=== PATIENT | female | born 1980 | race Caucasian/White ===

== ENCOUNTER → 2017-07-15 | Outpatient (CLI) | payer OTHER ==
[~2017-07-15] MED LIST: ALBU90OI6 INH; ALBU90OI61; Bentyl10 MG PO; CEPH250A PO; DOCU100 PO; DULO30 PO; FLONASE ALLERG9.9 ML; GABA300 PO; HYDR1TAB94 PO; IBUP800 PO; Inderal40 MG; METF500 PO; METPRE4DP PO; Norco 5-325 Ta1 EACH PO; ORACON PO; Omeprazole20 M1 PO; PROM25 PO; Percocet 5-3251 EACH PO; Phenergan25 M1 PO; SPIR25 PO; SUMA25 PO; Zofran Odt4 MG SL
[2017-07-17 12:41] LABS: HPV Genotype 16 Not Detected (NOTDET); HPV Genotype 18 Not Detected (NOTDET)
[2017-07-22 08:21] LABS: HPV High Risk Other Not Detected (NOTDET)
== END | disposition home or self-care (01) ==
LOC: LAB 18:13
PROVIDERS: Obstetrics & Gynecology
DX: Z01.419 Encounter for gynecological examination (general) (routine) without abnormal findings (principal)
CPT/HCPCS: 87624; G0123

== ENCOUNTER 2017-08-17 08:26 | Day surgery (SDC) | payer OTHER ==
[~2017-08-17] VITALS: Ht 160 cm; Wt 131.5 kg
[~2017-08-17 08:26] MED LIST changes: -Bentyl10 MG PO; -DOCU100 PO; -HYDR1TAB94 PO; -IBUP800 PO; -Omeprazole20 M1 PO; -Phenergan25 M1 PO
[2017-08-18 06:00] LABS: BASOPHILS ABSOLUTE AUTO 0.01 K/mm3 (0.00-0.23); BASOPHILS PERCENT AUTO 0 % (0-2); EOSINOPHILS PERCENT AUTO 0 % (0-6); Hematocrit 32.7 % (33.0-51.0); Hemoglobin 10.7 g/dL (11.5-16.0); IMMATURE GRAN ABSOLUTE AUTO 0.06 K/mm3 (0.00-0.10); IMMATURE GRAN PERCENT AUTO 0 % (0-1); LYMPHOCYTES ABSOLUTE AUTO 1.31 K/mm3 (0.84-5.20); LYMPHOCYTES PERCENT AUTO 8 % (21-46); MONOCYTES PERCENT AUTO 7 % (4-13); Mean Corpuscular HGB 28.6 pg (26.0-34.0); Mean Corpuscular HGB Conc 32.7 g/dL (31.5-36.5); Mean Corpuscular Volume 87 fL (80-100); Mean Platelet Volume 9.3 fL (9.1-12.4); NEUTROPHILS ABSOLUTE AUTO 13.16 K/mm3 (1.96-9.15); NEUTROPHILS PERCENT AUTO 84 % (41-73); Platelet Count 418 K/mm3 (150-400); RDW Coefficient Variation 13.2 % (11.7-14.2); RDW Standard Deviation 42.5 fL (35.1-46.3); Red Blood Cell Count 3.74 M/mm3 (3.80-5.20); White Blood Cell Count 15.64 K/mm3 (4.00-11.30)
[2017-08-18] MEDS ORDERED: HYDR1TAB94 PO (07:56)
[2017-08-18] MEDS ORDERED: DOCU100 PO (07:56)
[2017-08-18] MEDS ORDERED: IBUP800 PO (07:57)
[2018-03-16] MEDS ORDERED: Omeprazole20 M1 PO (10:37)
[2018-03-16] MEDS ORDERED: Phenergan25 M1 PO (10:37)
[2018-03-16] MEDS ORDERED: Bentyl10 MG PO (10:38)
== END 2017-08-18 09:34 | disposition home or self-care (01) ==
LOC: SURS 08:26
PROVIDERS: Obstetrics & Gynecology
PROC: 0UT9FZZ Resection of Uterus, Via Natural or Artificial Opening With Percutaneous Endoscopic Assistance (ICD-10-PCS; principal; 2017-08-17 10:00)
PROC: 0UT7FZZ Resection of Bilateral Fallopian Tubes, Via Natural or Artificial Opening With Percutaneous Endoscopic Assistance (ICD-10-PCS; principal; 2017-08-17 10:00)
DX: N80.0 Endometriosis of uterus (principal); N99.4 Postprocedural pelvic peritoneal adhesions; N92.1 Excessive and frequent menstruation with irregular cycle; R10.2 Pelvic and perineal pain; E28.2 Polycystic ovarian syndrome; E66.01 Morbid (severe) obesity due to excess calories; Z68.43 Body mass index [BMI] 50.0-59.9, adult; F17.210 Nicotine dependence, cigarettes, uncomplicated; J45.909 Unspecified asthma, uncomplicated; E16.2 Hypoglycemia, unspecified; Z79.899 Other long term (current) drug therapy
CPT/HCPCS: 36415; 82947; 85025; 88307; C1729; J0171; J0690; J1100; J1170; J1885; J2250; J2405; J2710; J3010; J7030; J7120

== ENCOUNTER 2019-02-06 22:00 | Emergency (ER) | payer OTHER ==
[~2019-02-06] VITALS: Ht 165.1 cm; Wt 122.4 kg
[~2019-02-06 22:00] MED LIST changes: +Bentyl10 MG PO; +DOCU100 PO; +HYDR1TAB94 PO; +IBUP800 PO; +Omeprazole20 M1 PO; +Phenergan25 M1 PO
[2019-02-06] MEDS ORDERED: Zanaflex2 M1 PO (23:09)
[2019-02-07] MEDS ORDERED: CYCL10 PO (00:05)
[2019-02-07] MEDS ORDERED: LIDO700A20 TOP (00:05)
== END 2019-02-07 00:35 | disposition home or self-care (01) ==
LOC: ER 22:00
DX: S39.012A Strain of muscle, fascia and tendon of lower back, initial encounter (principal); X58.XXXA Exposure to other specified factors, initial encounter; Z91.018 Allergy to other foods; Z88.6 Allergy status to analgesic agent; Z88.8 Allergy status to other drugs, medicaments and biological substances; Z88.5 Allergy status to narcotic agent; Z79.899 Other long term (current) drug therapy; Z79.84 Long term (current) use of oral hypoglycemic drugs; G43.909 Migraine, unspecified, not intractable, without status migrainosus; K21.9 Gastro-esophageal reflux disease without esophagitis; J45.909 Unspecified asthma, uncomplicated
CPT/HCPCS: 96372; 99283-25; J1885

== ENCOUNTER → 2019-08-25 | Outpatient (CLI) | payer OTHER ==
[~2019-08-25] MED LIST changes: +CYCL10 PO; +LIDO700A20 TOP; +Zanaflex2 M1 PO
[2019-08-26 14:39] LABS: G. vaginalis (DNA Probe) Negative (NEGATIVE); T. vaginalis (DNA Probe) Negative (NEGATIVE)
[2019-08-26 14:40] LABS: Candida species (DNA Probe) Positive (NEGATIVE)
[2019-08-27 02:10] LABS: CHLAMYDIA TRACHOMATIS, NAA Negative (Negative); NEISSERIA GONORRHOEAE, NAA Negative (Negative)
== END ==
LOC: LAB SHORT 11:00 → LAB 11:00
PROVIDERS: Nurse Practitioner
DX: Z20.2 Contact with and (suspected) exposure to infections with a predominantly sexual mode of transmission (principal)
CPT/HCPCS: 87070; 87205; 87480; 87491; 87510; 87591; 87660

== ENCOUNTER 2022-04-11 15:24 | Emergency (ER) | payer OTHER ==
[~2022-04-11] VITALS: Ht 160 cm; Wt 122.5 kg
[~2022-04-11 15:24] MED LIST changes: +BACTRIM DS TAB1 EAC1 PO; +CEPH500 PO; +CYMBALTA30 M2 PO; +Inderal40 MG PO; +METFORMIN HCL500 M2 PO; +NEURONTIN300 MG PO; +OMEP20ER PO; +SPIRONOLACTONE25 MG PO; +Ventolin/Prove6.7 GM INH
[2022-04-11 18:42] LABS: Influenza A, PCR NEGATIVE (NEGATIVE); Influenza B, PCR NEGATIVE (NEGATIVE); Resp Syncytial Virus, PCR NEGATIVE (NEGATIVE); SARS-Cov-2 (COVID-19) PCR, MMC NEGATIVE (NEGATIVE)
[2022-04-12] MEDS ORDERED: GABA300 PO (23:33)
[2022-04-12] MEDS ORDERED: KETO10 PO (23:33)
[2022-04-13] MEDS ORDERED: CEPH500 PO (21:34)
[2022-04-13] MEDS ORDERED: ONDA4 PO (21:34)
== END 2022-04-12 00:48 | disposition home or self-care (01) ==
LOC: ER 15:24
PROVIDERS: Physician Assistant
DX: J06.9 Acute upper respiratory infection, unspecified (principal); K21.9 Gastro-esophageal reflux disease without esophagitis; Z79.84 Long term (current) use of oral hypoglycemic drugs; Z79.899 Other long term (current) drug therapy; Z88.5 Allergy status to narcotic agent; Z88.8 Allergy status to other drugs, medicaments and biological substances; Z91.018 Allergy to other foods; Z91.09 Other allergy status, other than to drugs and biological substances; Z20.822 Contact with and (suspected) exposure to COVID-19
CPT/HCPCS: 0241U; 36415; 71046; A9270; J1885; J2405

== ENCOUNTER 2022-04-12 20:48 | Emergency (ER) | payer OTHER ==
[~2022-04-12] VITALS: Ht 160 cm; Wt 127.0 kg
[2022-04-12] MEDS ORDERED: GABA300 PO (23:33)
[2022-04-12] MEDS ORDERED: KETO10 PO (23:33)
[2022-04-13] MEDS ORDERED: ONDA4 PO (21:34)
[2022-04-13] MEDS ORDERED: CEPH500 PO (21:34)
== END 2022-04-12 23:46 | disposition home or self-care (01) ==
LOC: ER 20:48
DX: M79.2 Neuralgia and neuritis, unspecified (principal); Z88.8 Allergy status to other drugs, medicaments and biological substances; Z88.6 Allergy status to analgesic agent; Z88.5 Allergy status to narcotic agent; Z91.018 Allergy to other foods; Z79.899 Other long term (current) drug therapy; Z79.84 Long term (current) use of oral hypoglycemic drugs; G43.909 Migraine, unspecified, not intractable, without status migrainosus; J45.909 Unspecified asthma, uncomplicated; K21.9 Gastro-esophageal reflux disease without esophagitis
CPT/HCPCS: 99283

== ENCOUNTER 2022-04-13 19:50 | Emergency (ER) | payer OTHER ==
[~2022-04-13] VITALS: Ht 160 cm; Wt 127.0 kg
[~2022-04-13 19:50] MED LIST changes: +KETO10 PO
[2022-04-13] MEDS ORDERED: ONDA4 PO (21:34)
[2022-04-13] MEDS ORDERED: CEPH500 PO (21:34)
== END 2022-04-13 21:55 | disposition home or self-care (01) ==
LOC: ER 19:50
DX: L03.116 Cellulitis of left lower limb (principal); Z88.8 Allergy status to other drugs, medicaments and biological substances; Z88.5 Allergy status to narcotic agent; Z91.018 Allergy to other foods; Z91.09 Other allergy status, other than to drugs and biological substances; Z79.899 Other long term (current) drug therapy; Z79.84 Long term (current) use of oral hypoglycemic drugs
CPT/HCPCS: 99283; A9270

== ENCOUNTER 2022-04-16 12:59 | Inpatient (IN) | payer OTHER ==
[~2022-04-16] VITALS: Ht 160 cm; Wt 111.4 kg
[~2022-04-16 12:59] MED LIST changes: +ONDA4 PO
[2022-04-16 15:55] LABS: BASOPHILS ABSOLUTE AUTO 0.09 K/mm3 (0.00-0.23); BASOPHILS PERCENT AUTO 0 % (0-2); EOSINOPHILS ABSOLUTE AUTO 0.14 K/mm3 (0.00-0.68); EOSINOPHILS PERCENT AUTO 1 % (0-6); Hematocrit 43.9 % (33.0-51.0); Hemoglobin 15.1 g/dL (11.5-16.0); IMMATURE GRAN ABSOLUTE AUTO 0.37 K/mm3 (0.00-0.10); IMMATURE GRAN PERCENT AUTO 1 % (0-1); LYMPHOCYTES ABSOLUTE AUTO 1.69 K/mm3 (0.84-5.20); LYMPHOCYTES PERCENT AUTO 7 % (21-46); MONOCYTES ABSOLUTE AUTO 1.54 K/mm3 (0.16-1.47); MONOCYTES PERCENT AUTO 6 % (4-13); Mean Corpuscular HGB 29.4 pg (26.0-34.0); Mean Corpuscular HGB Conc 34.4 g/dL (31.5-36.5); Mean Corpuscular Volume 85 fL (80-100); Mean Platelet Volume 8.8 fL (9.1-12.4); NEUTROPHILS ABSOLUTE AUTO 21.82 K/mm3 (1.96-9.15); NEUTROPHILS PERCENT AUTO 85 % (41-73); Platelet Count 520 K/mm3 (150-400); RDW Coefficient Variation 13.2 % (11.7-14.2); RDW Standard Deviation 41.9 fL (35.1-46.3); Red Blood Cell Count 5.14 M/mm3 (3.80-5.20); White Blood Cell Count 25.65 K/mm3 (4.00-11.30)
[2022-04-16 16:05] LABS: Source, Urine Clean Catch
[2022-04-16 16:08] LABS: Appearance, Urine Cloudy (Clear); Bilirubin, Urine Neg (Neg); Blood, Urine 3+ (Neg); Color, Urine Yellow (P-Yellow); Glucose Qualitative, Urine 1+ (Neg); Ketones, Urine 1+ (Neg); Leukocyte Esterase, Urine 3+ (Neg); Nitrite, Urine Neg (Neg); Protein, Urine 2+ (Neg); Urobilinogen, Urine NORM (Normal)
[2022-04-16 16:21] LABS: C-REACTIVE PROTEIN, EXT RANGE 14.3 mg/dL (0.000-0.300)
[2022-04-16 16:32] LABS: Albumin, Blood 3.3 g/dL (3.4-5.0); Albumin/Globulin Ratio 0.7 (0.8-1.8); Bilirubin, Total 0.3 mg/dL (0.1-1.0); Bun/Creatinine Ratio 11.2 (12.0-20.0); Calcium, Blood 9.7 mg/dL (8.5-10.1); Creatinine, Blood 1.43 mg/dL (0.40-1.00); Globulin, Blood 4.5 g/dL (2.2-4.0); Thyroid Stimulating Hormone 0.562 uIU/mL (0.360-4.800); Total Protein, Blood 7.8 g/dL (6.4-8.2)
[2022-04-16 16:32] LABS: Bacteria Many /hpf; Squamous Epithelial Cells Mod /hpf (Few); White Blood Cells, Urine TNTC /hpf (0-5)
[2022-04-16 16:45] LABS: Influenza A, PCR NEGATIVE (NEGATIVE); Influenza B, PCR NEGATIVE (NEGATIVE); Resp Syncytial Virus, PCR NEGATIVE (NEGATIVE); SARS-Cov-2 (COVID-19) PCR, MMC NEGATIVE (NEGATIVE)
[2022-04-16 19:56] LABS: CPK Creatine Kinase 80 U/L (26-193)
--- NOTE | 2022-04-16 21:55 | NUR ---
ASSUMED CARE OF PATIENT AT 2024. PT ARRIVED TO ROOM 333 VIA GURNEY. PT UNABLE TO PIVOT TX DUE TO PAIN IN R KNEE. PT TX VIA SLIDE SHEET TO BED. PT REPORTING FENTANYL GIVEN IN ER WAS WEARING OFF AND PAIN WAS INCREASING. PT STARTED ON 2ND BAG OF IV POTASSIUM BUT PT REPORTED 10/10 PAIN FROM IV SITE ONCE INFUSION STARTED. SLOWED RATE DOWN BUT PT CONTINUED TO COMPLAIN OF PAIN. PT CRYING FROM THE PAIN SO INFUSION WAS STOPPED. IV IS NOT INFILTRATED. TELE BOX PLACED AND PT REPORTED TO BE NSR AT 73. PT ORIENTED TO ROOM, CALL LIGHT, FALL PRECAUTIONS. TC PLACED TO DR. MCKENZIE REGARDING INCREASED PAIN AND INABILITY TO TOLERATE IV POTASSIUM. ORDER RECEIVED FOR ONE TIME DOSE OF DILAUDID 1 MG IV NOW, POTASSIUM 20 MEQ PO NOW ONE TIME DOSE. PT REPORTED SHE HAS HAD DILAUDID IN THE PAST AND CAN TOLERATE DILAUDID. PT WAS GIVEN DILAUDID VIA IV WITH NO REPORTS OF ADVERSE REACTION. PT REPORTED PAIN LEVEL TOLERABLE POST ADMINISTRATION 2/10. PT GIVEN CHICKEN NOODLE SOUP AND CRACKERS SHE REPORTED SHE WAS HUNGRY AND HAS NOT EATEN A MEAL IN A WEEK DUE TO INABILITY TO COOK FOR SELF DUE TO PAIN. TOLERATING PO INTAKE AT THIS TIME.
[2022-04-17 03:05] LABS: U Amphetamine Screen Not Detected; U Barbituate Screen Not Detected; U Benzodiazapine Screen Not Detected; U Buprenorphine Screen Not Detected; U Cannabinoids Screen Not Detected; U Cocaine Screen Not Detected; U Methadone Screen Not Detected; U Methamphetamine Screen Not Detected; U Opiates Screen DETECTED; U Oxycodone Screen Not Detected; U Phencyclidine Screen Not Detected; U Propoxyphene Screen Not Detected
--- NOTE | 2022-04-17 05:09 | NUR ---
PT TRANSFERRED FROM ED AFTER SHIFT CHANGE WITH CARY. PT IS A/OX4. VS STABLE. PT IS ON TELE WITH SR AT 86. PT IS 2PA. PT USES BEDPAN FOR ELIMINATION. PT HAD C/O OF PAIN 10/10 IN R KNEE, LEFT HAND, LEFT ANKLE. 1MG STAT DILAUDED GIVEN AND REDUCED PAIN TO 5/10. PT HAS FENTANYL IV 25-50mcg Q2H PRN FOR PAIN. PT HAS BEEN REQUESING MEDICATION Q2H FOR PAIN. PT IS CURRENTLY AWAKE WITH BED IN LOWEST POSITION AND CALL LIGHT WITHIN REACH.
[2022-04-17 05:30] LABS: BASOPHILS ABSOLUTE AUTO 0.11 K/mm3 (0.00-0.23); BASOPHILS PERCENT AUTO 1 % (0-2); EOSINOPHILS ABSOLUTE AUTO 0.23 K/mm3 (0.00-0.68); EOSINOPHILS PERCENT AUTO 1 % (0-6); Hematocrit 39.4 % (33.0-51.0); Hemoglobin 13.6 g/dL (11.5-16.0); IMMATURE GRAN ABSOLUTE AUTO 0.34 K/mm3 (0.00-0.10); IMMATURE GRAN PERCENT AUTO 1 % (0-1); LYMPHOCYTES ABSOLUTE AUTO 2.06 K/mm3 (0.84-5.20); LYMPHOCYTES PERCENT AUTO 9 % (21-46); MONOCYTES ABSOLUTE AUTO 2.18 K/mm3 (0.16-1.47); MONOCYTES PERCENT AUTO 9 % (4-13); Mean Corpuscular HGB 29.6 pg (26.0-34.0); Mean Corpuscular HGB Conc 34.5 g/dL (31.5-36.5); Mean Corpuscular Volume 86 fL (80-100); Mean Platelet Volume 8.8 fL (9.1-12.4); NEUTROPHILS ABSOLUTE AUTO 18.71 K/mm3 (1.96-9.15); NEUTROPHILS PERCENT AUTO 79 % (41-73); Platelet Count 517 K/mm3 (150-400); RDW Coefficient Variation 13.5 % (11.7-14.2); RDW Standard Deviation 42.3 fL (35.1-46.3); Red Blood Cell Count 4.59 M/mm3 (3.80-5.20); White Blood Cell Count 23.63 K/mm3 (4.00-11.30)
[2022-04-17 06:00] LABS: Albumin, Blood 2.7 g/dL (3.4-5.0); Albumin/Globulin Ratio 0.6 (0.8-1.8); Bilirubin, Total 0.3 mg/dL (0.1-1.0); Bun/Creatinine Ratio 14.9 (12.0-20.0); Calcium, Blood 8.7 mg/dL (8.5-10.1); Creatinine, Blood 0.94 mg/dL (0.40-1.00); Globulin, Blood 4.2 g/dL (2.2-4.0); Potassium, Blood 3.4 mmol/L (3.5-5.5); Total Protein, Blood 6.9 g/dL (6.4-8.2)
--- NOTE | 2022-04-17 18:30 | NUR ---
SHIFT SUMMARY PTN HERE FOR CARY AND UTI, BUT ALSO NOTED TO HAVE PAINFUL SWOLLEN R KNEE, L HAND, AND L FOOT. AREAS ARE PUFFY WITH REDNESS AND WARMTH. PAIN HIGH 9-10/10, WITH FENTYNL REDUCING PAIN TO ABOUT A 5, AND PERCOCET REDUCING PAIN DOWN TO 2-3/10. PTN STARTED ON STEROID. ANTIBIOTIC ROCEPHIN ALSO BEING GIVEN IV. PTN HAS RESPONDED WELL TO THERAPY THROUGHOUT SHIFT. CONTINUE TO MONITOR.
--- NOTE | 2022-04-18 04:41 | NUR ---
DISABILITY RATER SUMMARY: A&Ox4. PLEASANT AND COOPERATIVE WITH CARE. VSS; BP ELEVATION THIS AM DURING TIME OF INCREASED PAIN. C/O HEARTBURN AND ADMINISTERED MAALOX PER DR MALONE. PRN OXY x2 AND PRN FENTANYL x1. REPORTS PAIN IS MUCH BETTER CONTROLLED WITH THIS NEW REGIMEN. TELE NORMAL SINUS @ 62. NO OTHER ACUTE EVENTS T/O THE NIGHT. WILL REPORT TO ONCOMING RN.
[2022-04-18 05:02] LABS: BASOPHILS ABSOLUTE AUTO 0.07 K/mm3 (0.00-0.23); BASOPHILS PERCENT AUTO 0 % (0-2); EOSINOPHILS ABSOLUTE AUTO 0.03 K/mm3 (0.00-0.68); EOSINOPHILS PERCENT AUTO 0 % (0-6); Hematocrit 38.5 % (33.0-51.0); Hemoglobin 13.3 g/dL (11.5-16.0); IMMATURE GRAN ABSOLUTE AUTO 0.25 K/mm3 (0.00-0.10); IMMATURE GRAN PERCENT AUTO 1 % (0-1); LYMPHOCYTES PERCENT AUTO 8 % (21-46); MONOCYTES ABSOLUTE AUTO 1.75 K/mm3 (0.16-1.47); MONOCYTES PERCENT AUTO 8 % (4-13); Mean Corpuscular HGB 29.6 pg (26.0-34.0); Mean Corpuscular HGB Conc 34.5 g/dL (31.5-36.5); Mean Corpuscular Volume 86 fL (80-100); Mean Platelet Volume 8.9 fL (9.1-12.4); NEUTROPHILS ABSOLUTE AUTO 19.07 K/mm3 (1.96-9.15); NEUTROPHILS PERCENT AUTO 83 % (41-73); Platelet Count 596 K/mm3 (150-400); RDW Coefficient Variation 13.3 % (11.7-14.2); RDW Standard Deviation 41.7 fL (35.1-46.3); White Blood Cell Count 22.97 K/mm3 (4.00-11.30)
[2022-04-18 05:37] LABS: Albumin, Blood 2.6 g/dL (3.4-5.0); Albumin/Globulin Ratio 0.6 (0.8-1.8); Bilirubin, Total 0.3 mg/dL (0.1-1.0); Bun/Creatinine Ratio 20.3 (12.0-20.0); C-REACTIVE PROTEIN, EXT RANGE 12.2 mg/dL (0.000-0.300); Calcium, Blood 9.1 mg/dL (8.5-10.1); Creatinine, Blood 0.64 mg/dL (0.40-1.00); Globulin, Blood 4.1 g/dL (2.2-4.0); Total Protein, Blood 6.7 g/dL (6.4-8.2)
--- NOTE | 2022-04-18 16:42 | NUR ---
SHIFT SUMMARY PATIENT MEDICATED FOR PAIN X3, PATIENT DENIES NAUSEA AND SHORTNESS OF BREATH. PATIENT MEDICATED FOR HEARTBURN X2. PATIENT IS A SBA WITH A FWW TO THE [facility] [place] [facility] [place]. PATIENT REPORTS PAIN IN LEFT FOOT WHEN PUTTING WEIGHT ON IT. MOST JOINTS ARE SWOLLEN AND SLIGHTLY RED. PATIENT HAD MANY VISITORS TODAY. PATIENT ABLE TO SHOWER TODAY. PATIENT IS EATING AND DRINKING WELL. PATIENT WORKED WITH PT TODAY, SEE NOTE, RECOMMEND HOME WITH HOME HEALTH. GRAIN SHOVELER MET WITH PATIENT, SEE NOTE. PATIENT IS PLEASANT AND COOPERATIVE WITH CARE.
[2022-04-19 04:57] LABS: BASOPHILS PERCENT AUTO 1 % (0-2); EOSINOPHILS PERCENT AUTO 0 % (0-6); Hematocrit 38.5 % (33.0-51.0); Hemoglobin 13.4 g/dL (11.5-16.0); IMMATURE GRAN ABSOLUTE AUTO 0.58 K/mm3 (0.00-0.10); IMMATURE GRAN PERCENT AUTO 3 % (0-1); LYMPHOCYTES ABSOLUTE AUTO 1.44 K/mm3 (0.84-5.20); LYMPHOCYTES PERCENT AUTO 7 % (21-46); MONOCYTES PERCENT AUTO 2 % (4-13); Mean Corpuscular HGB 29.8 pg (26.0-34.0); Mean Corpuscular HGB Conc 34.8 g/dL (31.5-36.5); Mean Corpuscular Volume 86 fL (80-100); Mean Platelet Volume 8.9 fL (9.1-12.4); NEUTROPHILS ABSOLUTE AUTO 19.19 K/mm3 (1.96-9.15); NEUTROPHILS PERCENT AUTO 88 % (41-73); Platelet Count 723 K/mm3 (150-400); RDW Coefficient Variation 13.1 % (11.7-14.2); RDW Standard Deviation 40.7 fL (35.1-46.3); White Blood Cell Count 21.71 K/mm3 (4.00-11.30)
[2022-04-19 05:23] LABS: Albumin, Blood 2.8 g/dL (3.4-5.0); Albumin/Globulin Ratio 0.6 (0.8-1.8); Bilirubin, Total 0.2 mg/dL (0.1-1.0); Bun/Creatinine Ratio 26.3 (12.0-20.0); Calcium, Blood 9.2 mg/dL (8.5-10.1); Creatinine, Blood 0.53 mg/dL (0.40-1.00); Globulin, Blood 4.6 g/dL (2.2-4.0); Potassium, Blood 4.3 mmol/L (3.5-5.5); Total Protein, Blood 7.4 g/dL (6.4-8.2)
--- NOTE | 2022-04-19 06:35 | NUR ---
A/Ox4; ANXIOUS AT TIMES. PRN KLONAPIN ORDERED AND GIVEN WITH GOOD RELIEF PER PATIENT. SPECIFICALLY ANXIOUS REGARDING SAFE DISCHARGE TO HOME; RESOURCES DISCUSSED WITH PATIENT AND REASSURANCE PROVIDED (CM CONSULT ALREADY IN PLACE). PRN ANALGESICS GIVEN FOR C/O 5/10 PAIN (WHICH INCREASES WITH TOUCH AND WHEN AMBULATING); PATIENT AFFIRMS EFFECTIVE RELIEF WITH CURRENT PAIN MANAGEMENT. EXPRESSES ANXIETY R/T PAIN CONTROL AFTER DISCHARGE. TELE: SR WITH HR 60's. LUNGS CTA. SOB WITH SBA AMBULATION - APPROX 80 FT IN HALLWAY WITH TOE TOUCH WEIGHT BEARING LLE AND MULTIPLE LENGTHY PAUSES TO LEAN ON WALKER AND CATCH BREATH. HANDS/ARMS SHAKING WITH EFFORT OF AMBULATION UPON RETURN TO BED. SMALL OPEN SORE TO R INNER THIGH TIGHT COOPER. EDEMATOUS/ REDDENED AREAS ARE IMPROVING PER PATIENT; PREDNISONE GIVEN PER ORDERS. SLEEP PROMOTED. CALL LIGHT IN REACH; ENCOURAGED TO MAKE NEEDS KNOWN.
--- NOTE | 2022-04-19 17:29 | NUR ---
SHIFT SUMMARY: PATIENT A&OX4. PLEASANT AND COOPERATIVE WITH CARE. USES CALL LIGHT APPROPRIATELY AND ABLE TO ADVOCATE FOR HER NEEDS. LUNGS CLEAR T/O TO AUSCULTATION. DENIED SOB. PATIENT DENIED CP/CHEST DISCOMFORT. PATIENT HAS BEEN ON NSR IN MID 60'S PER MONITORING TECH CYNTHIA HUA. TELE WAS DC'D THIS PM. PATIENT WAS ABLE TO PARTICIPATE WITH PT THIS AM. PATIENT AMBULATES TO HALLWAY AND BACK TO BED WITH SBA, FWW AND GAITBELT. PATIENT HAS BEEN CONTINENT T/O SHIFT. UP TO BSC WITH SBA. IV TO R AC SALINE LOCKED. PATIENT BS THIS SHIFT RANGES LOW 200'S TO MID 200'S. RECEIVED INSULIN COVERAGE PER EMAR. PATIENT RECIEVED PRN PAIN MEDICATIONS FOR PAIN ON L HAND AND R LEG. PATIENT REPORTS OF ADEQUATE RELIEF. VITAL SIGNS REVIEWED. BED IN LOWEST POSITION, LOCKED AND CALL LIGHT IN REACH.
--- NOTE | 2022-04-20 02:46 | NUR ---
A/Ox4; ANXIOUS AT TIMES. PRN KLONAPIN GIVEN WITH GOOD RELIEF PER PATIENT. CONTINUES TO EXPRESS ANXIETY REGARDING SAFE DISCHARGE TO HOME AND R/T PAIN CONTROL AFTER DISCHARGE. PRN ANALGESICS GIVEN FOR C/O 07/25 TO 6 PAIN (WORSENS WITH TOUCH AND WHEN AMBULATING); PATIENT AFFIRMS EFFECTIVE RELIEF WITH CURRENT PAIN MANAGEMENT. LUNGS CTA. MILDLY SOB WITH SBA AMBULATION (80 FT IN HODGES). NOT TOUCHING LLE TO FLOOR AND MULTIPLE LENGTHY PAUSES TO LEAN ON WALKER AND CATCH BREATH. ARMS SHAKING WITH EFFORT DURING AMBULATION. SMALL OPEN SORE TO R INNER THIGH JENNIFFER. EDEMA, AND REDNESS TO JOINTS HAS IMPROVED SINCE ADMIT PER PATIENT; PREDNISONE GIVEN PER ORDERS. SLEEP PROMOTED. CALL LIGHT IN REACH; ENCOURAGED TO MAKE NEEDS KNOWN.
[2022-04-20 05:13] LABS: BASOPHILS ABSOLUTE AUTO 0.05 K/mm3 (0.00-0.23); BASOPHILS PERCENT AUTO 0 % (0-2); EOSINOPHILS PERCENT AUTO 0 % (0-6); Hematocrit 35.5 % (33.0-51.0); Hemoglobin 12.3 g/dL (11.5-16.0); IMMATURE GRAN ABSOLUTE AUTO 0.25 K/mm3 (0.00-0.10); IMMATURE GRAN PERCENT AUTO 2 % (0-1); LYMPHOCYTES ABSOLUTE AUTO 1.45 K/mm3 (0.84-5.20); LYMPHOCYTES PERCENT AUTO 9 % (21-46); MONOCYTES PERCENT AUTO 5 % (4-13); Mean Corpuscular HGB Conc 34.6 g/dL (31.5-36.5); Mean Corpuscular Volume 87 fL (80-100); Mean Platelet Volume 8.8 fL (9.1-12.4); NEUTROPHILS ABSOLUTE AUTO 13.59 K/mm3 (1.96-9.15); NEUTROPHILS PERCENT AUTO 84 % (41-73); Platelet Count 658 K/mm3 (150-400); RDW Coefficient Variation 13.1 % (11.7-14.2); RDW Standard Deviation 41.6 fL (35.1-46.3); White Blood Cell Count 16.14 K/mm3 (4.00-11.30)
[2022-04-20 05:50] LABS: Albumin, Blood 2.6 g/dL (3.4-5.0); Albumin/Globulin Ratio 0.6 (0.8-1.8); Bilirubin, Total 0.3 mg/dL (0.1-1.0); Bun/Creatinine Ratio 31.8 (12.0-20.0); Calcium, Blood 8.7 mg/dL (8.5-10.1); Creatinine, Blood 0.6 mg/dL (0.40-1.00); Total Protein, Blood 6.6 g/dL (6.4-8.2)
--- NOTE | 2022-04-20 17:59 | NUR ---
SHIFT SUMMARY: NO ACUTE CHANGES THIS SHIFT. PATIENT CONTINOUS TO BE IMPROVING WITH MOBILITY. PATIENT HAS BEEN AMBULATING TO BATHROOM AND HALLWAY T/O SHIFT. PATIENT WORK WITH PT THIS MORNING AND TOLERATED WELL. DENIED N/V. DENIED SOB. DENIED CP/CHEST DISCOMFORT. IV TO R AC SALINE LOCKED. RECIEVED SCHEDULED MEDS THIS SHIFT. RECIEVED COUPLE DOSES OF PRN PAIN MEDS PER EMAR. PATIENT REPORTS OF HAVING GREAT RELIEF WITH PAIN. PATIENT BS RANGES FROM HIGH 100'S TO LOW 200'S. RECIEVED INSULIN COVERAGE PER EMAR THIS SHIFT. VITAL SIGNS REVIEWED. USES CALL LIGHT APPROPRIATELY. PLEASANT AND COOPERATIVE WITH CARE. CALL LIGHT IN REACH.
[2022-04-21 05:30] LABS: BASOPHILS ABSOLUTE AUTO 0.05 K/mm3 (0.00-0.23); BASOPHILS PERCENT AUTO 0 % (0-2); EOSINOPHILS ABSOLUTE AUTO 0.01 K/mm3 (0.00-0.68); EOSINOPHILS PERCENT AUTO 0 % (0-6); Hematocrit 35.9 % (33.0-51.0); Hemoglobin 12.4 g/dL (11.5-16.0); IMMATURE GRAN PERCENT AUTO 2 % (0-1); LYMPHOCYTES ABSOLUTE AUTO 3.16 K/mm3 (0.84-5.20); LYMPHOCYTES PERCENT AUTO 19 % (21-46); MONOCYTES ABSOLUTE AUTO 1.42 K/mm3 (0.16-1.47); MONOCYTES PERCENT AUTO 8 % (4-13); Mean Corpuscular HGB Conc 34.5 g/dL (31.5-36.5); Mean Corpuscular Volume 87 fL (80-100); Mean Platelet Volume 8.7 fL (9.1-12.4); NEUTROPHILS ABSOLUTE AUTO 11.92 K/mm3 (1.96-9.15); NEUTROPHILS PERCENT AUTO 71 % (41-73); Platelet Count 650 K/mm3 (150-400); RDW Coefficient Variation 12.9 % (11.7-14.2); RDW Standard Deviation 40.9 fL (35.1-46.3); Red Blood Cell Count 4.13 M/mm3 (3.80-5.20); White Blood Cell Count 16.86 K/mm3 (4.00-11.30)
[2022-04-21 06:25] LABS: Albumin, Blood 2.5 g/dL (3.4-5.0); Albumin/Globulin Ratio 0.7 (0.8-1.8); Bilirubin, Total 0.2 mg/dL (0.1-1.0); Bun/Creatinine Ratio 36.4 (12.0-20.0); C-Reactive Protein, High Sens. 7.76 mg/L (0.000-3.000); Calcium, Blood 8.5 mg/dL (8.5-10.1); Creatinine, Blood 0.61 mg/dL (0.40-1.00); Globulin, Blood 3.5 g/dL (2.2-4.0); Potassium, Blood 4.9 mmol/L (3.5-5.5)
--- NOTE | 2022-04-21 06:53 | NUR ---
A/Ox4; COOPERATIVE. ANXIOUS AT TIMES; SPECIFICALLY THIS SHIFT REGARDING DIABETES MANAGEMENT, DIETITION CONSULT ORDERED. THIS RN OFFERED PATIENT OPPORTUNITY TO PRACTICE WITH LANCET AT SCHEDULED GLUCOSE CHECK; PATIENT DECLINED AT THIS TIME. PRN ANALGESICS GIVEN FOR C/O LLE PAIN (WORSENS WITH TOUCH AND WHEN AMBULATING); PATIENT AFFIRMS EFFECTIVE RELIEF WITH CURRENT PAIN MANAGEMENT. MOBILITY IMPROVING SIGNIFICANTLY; STILL UNABLE TO BEAR WEIGHT ON LLE D/T PAIN. SMALL OPEN SORE TO R INNER THIGH LAND APPRAISER. EDEMA, AND REDNESS TO JOINTS HAS IMPROVED SINCE ADMIT PER PATIENT; PREDNISONE CHANGED TO PO. PIV LEAKING; OK TO LEAVE OUT PER MD. SLEEP PROMOTED. CALL LIGHT IN REACH; ENCOURAGED TO MAKE NEEDS KNOWN.
[2022-04-21] MEDS ORDERED: ACET325 PO (15:03)
[2022-04-21] MEDS ORDERED: LAMO25 PO (15:04)
[2022-04-21] MEDS ORDERED: DULO60 PO (15:04)
[2022-04-21] MEDS ORDERED: ONDA4 PO (15:05)
[2022-04-21] MEDS ORDERED: PRED20 PO (15:09)
[2022-04-21] MEDS ORDERED: PERCOCET 10-321 EA10 PO (15:10)
--- NOTE | 2022-04-21 18:27 | NUR ---
LATE ENTRY/DC HOME 1600: WRITTEN & VERBAL DC INSTRUCTIONS GIVEN TO PT WITH GOOD UNDERSTANDING VERBALIZED. NO PIV TO DC. ALL NEW SCRIPTS WERE FAXED TO [facility] PER PT REQUEST. 3 HARD SCRIPTS WERE GIVEN TO PT, 1 FOR HER PAIN MEDS, 1 FOR HER EMPLOYER AND 1 FOR A GLUCOMETER TO TEST HER BLOOD SUGARS. PT OUT TO PRIVATE VEHICLE VIA W/C WITH ALL PERSONAL BELONGINGS ONCE HER RIDE HOME ARRIVED.
== END 2022-04-21 16:10 | disposition home health service (06) | DRG 683 ==
LOC: ER 12:59 → MEDS 13:00 → ERHOLD 17:31 → MEDS 17:31 → ER 17:31 → MEDS 17:31 → ERHOLD 20:22 → MEDS 20:22
PROVIDERS: Family Medicine; Student in an Organized Health Care Education/Training Program; ADMIT Internal Medicine
DX: N17.9 Acute kidney failure, unspecified (principal); L97.119 Non-pressure chronic ulcer of right thigh with unspecified severity; Z68.42 Body mass index [BMI] 45.0-49.9, adult; R07.81 Pleurodynia; M13.842 Other specified arthritis, left hand; M13.872 Other specified arthritis, left ankle and foot; E86.0 Dehydration; R09.1 Pleurisy; E87.6 Hypokalemia; F43.12 Post-traumatic stress disorder, chronic; F41.9 Anxiety disorder, unspecified; E09.9 Drug or chemical induced diabetes mellitus without complications; T38.0X5A Adverse effect of glucocorticoids and synthetic analogues, initial encounter; E66.9 Obesity, unspecified; G43.909 Migraine, unspecified, not intractable, without status migrainosus; L08.0 Pyoderma; K21.9 Gastro-esophageal reflux disease without esophagitis; J45.909 Unspecified asthma, uncomplicated; M79.10 Myalgia, unspecified site; R70.0 Elevated erythrocyte sedimentation rate; F31.9 Bipolar disorder, unspecified; E28.2 Polycystic ovarian syndrome; Z20.822 Contact with and (suspected) exposure to COVID-19; Z88.8 Allergy status to other drugs, medicaments and biological substances; Z88.5 Allergy status to narcotic agent; Z91.010 Allergy to peanuts; Z91.018 Allergy to other foods; Z91.048 Other nonmedicinal substance allergy status; Z79.899 Other long term (current) drug therapy; Z79.84 Long term (current) use of oral hypoglycemic drugs; Z79.2 Long term (current) use of antibiotics; Z98.51 Tubal ligation status; Z98.890 Other specified postprocedural states; Z90.710 Acquired absence of both cervix and uterus
CPT/HCPCS: 0241U; 36415; 71045; 80053; 81001; 82550; 82947; 83605; 83735; 84443; 84484; 85025; 85651; 86140; 86141; 87040; 87086; 93005; 93010; 93306; 96361; 96374; 96375; 96376; 97110; 97116; 97162; 97530; 99285-25; A9270; J0696; J1170; J1650; J1815; J2405; J2920; J3010; J3480; J7030; J7512

== ENCOUNTER 2022-10-07 02:23 | Emergency (ER) | payer OTHER ==
[~2022-10-07] VITALS: Ht 160 cm; Wt 113.4 kg
[~2022-10-07 02:23] MED LIST changes: +ACET325 PO; +ALBU2.5V5 INH; +DULO60 PO; +LAMO25 PO; +PERCOCET 10-321 EA10 PO; +PRED20 PO
[2022-10-07] MEDS ORDERED: FOLI1 PO ×2 (02:56→03:01)
[2022-10-07 03:00] LABS: BASOPHILS PERCENT AUTO 1 % (0-2); EOSINOPHILS PERCENT AUTO 5 % (0-6); Hematocrit 39.2 % (33.0-51.0); Hemoglobin 13.6 g/dL (11.5-16.0); IMMATURE GRAN ABSOLUTE AUTO 0.01 K/mm3 (0.00-0.10); IMMATURE GRAN PERCENT AUTO 0 % (0-1); LYMPHOCYTES ABSOLUTE AUTO 4.48 K/mm3 (0.84-5.20); LYMPHOCYTES PERCENT AUTO 41 % (21-46); MONOCYTES ABSOLUTE AUTO 1.08 K/mm3 (0.16-1.47); MONOCYTES PERCENT AUTO 10 % (4-13); Mean Corpuscular HGB 29.4 pg (26.0-34.0); Mean Corpuscular HGB Conc 34.7 g/dL (31.5-36.5); Mean Corpuscular Volume 85 fL (80-100); Mean Platelet Volume 8.9 fL (9.1-12.4); NEUTROPHILS ABSOLUTE AUTO 4.73 K/mm3 (1.96-9.15); NEUTROPHILS PERCENT AUTO 43 % (41-73); Platelet Count 446 K/mm3 (150-400); RDW Coefficient Variation 13.3 % (11.7-14.2); RDW Standard Deviation 41.4 fL (35.1-46.3); Red Blood Cell Count 4.62 M/mm3 (3.80-5.20)
[2022-10-07] MEDS ORDERED: METHOTREXATE2.510 PO (03:01)
[2022-10-07] MEDS ORDERED: LAMOTRIGINE100 M1 PO (03:01)
[2022-10-07] MEDS ORDERED: NEURONTIN300 MG PO (03:01)
[2022-10-07] MEDS ORDERED: VRAYLAR1.5 MG PO (03:01)
[2022-10-07 03:12] LABS: Albumin, Blood 3.8 g/dL (3.4-5.0); Albumin/Globulin Ratio 1.1 (0.8-1.8); Bilirubin, Total 0.4 mg/dL (0.1-1.0); Bun/Creatinine Ratio 20.4 (12.0-20.0); Calcium, Blood 9.1 mg/dL (8.5-10.1); Creatinine, Blood 0.74 mg/dL (0.40-1.00); Globulin, Blood 3.6 g/dL (2.2-4.0); Potassium, Blood 3.5 mmol/L (3.5-5.5); Total Protein, Blood 7.4 g/dL (6.4-8.2)
[2022-10-07] MEDS ORDERED: MECL25 PO (04:10)
[2022-10-07 04:45] VITALS: BP 117/60
== END 2022-10-07 04:55 | disposition home or self-care (01) ==
LOC: ER 02:23
PROVIDERS: Student in an Organized Health Care Education/Training Program
DX: R42 Dizziness and giddiness (principal); G43.909 Migraine, unspecified, not intractable, without status migrainosus; J45.909 Unspecified asthma, uncomplicated; K21.9 Gastro-esophageal reflux disease without esophagitis; Z91.018 Allergy to other foods; Z88.6 Allergy status to analgesic agent; Z88.5 Allergy status to narcotic agent; Z91.048 Other nonmedicinal substance allergy status; Z79.899 Other long term (current) drug therapy; Z79.84 Long term (current) use of oral hypoglycemic drugs
CPT/HCPCS: 36415; 80053; 85025; 93005; 93010; 96374; 96375; 99284-25; A9270; J2405; J2765

== ENCOUNTER 2023-07-16 06:31 | Emergency (ER) | payer OTHER ==
[~2023-07-16] VITALS: Ht 160 cm; Wt 117.9 kg
[~2023-07-16 06:31] MED LIST changes: +AMOCLA875 PO; +FOLI1 PO; +LAMOTRIGINE100 M1 PO; +MECL25 PO; +METHOTREXATE2.510 PO; +VRAYLAR1.5 MG PO
[2023-07-16 07:02] LABS: BASOPHILS ABSOLUTE AUTO 0.07 K/mm3 (0.00-0.23); BASOPHILS PERCENT AUTO 1 % (0-2); EOSINOPHILS ABSOLUTE AUTO 0.22 K/mm3 (0.00-0.68); EOSINOPHILS PERCENT AUTO 2 % (0-6); Hemoglobin 15.2 g/dL (11.5-16.0); IMMATURE GRAN ABSOLUTE AUTO 0.03 K/mm3 (0.00-0.10); IMMATURE GRAN PERCENT AUTO 0 % (0-1); LYMPHOCYTES ABSOLUTE AUTO 1.79 K/mm3 (0.84-5.20); LYMPHOCYTES PERCENT AUTO 19 % (21-46); MONOCYTES ABSOLUTE AUTO 0.67 K/mm3 (0.16-1.47); MONOCYTES PERCENT AUTO 7 % (4-13); Mean Corpuscular HGB 28.8 pg (26.0-34.0); Mean Corpuscular HGB Conc 33.8 g/dL (31.5-36.5); Mean Corpuscular Volume 85 fL (80-100); Mean Platelet Volume 8.7 fL (9.1-12.4); NEUTROPHILS ABSOLUTE AUTO 6.73 K/mm3 (1.96-9.15); NEUTROPHILS PERCENT AUTO 71 % (41-73); Platelet Count 509 K/mm3 (150-400); RDW Coefficient Variation 13.1 % (11.7-14.2); RDW Standard Deviation 41.1 fL (35.1-46.3); Red Blood Cell Count 5.27 M/mm3 (3.80-5.20); White Blood Cell Count 9.51 K/mm3 (4.00-11.30)
[2023-07-16 07:14] LABS: Albumin, Blood 3.7 g/dL (3.4-5.0); Albumin/Globulin Ratio 0.9 (0.8-1.8); Bilirubin, Total 0.6 mg/dL (0.1-1.0); Bun/Creatinine Ratio 13.8 (12.0-20.0); Calcium, Blood 9.1 mg/dL (8.5-10.1); Creatinine, Blood 0.65 mg/dL (0.40-1.00); Potassium, Blood 4.1 mmol/L (3.5-5.5); Total Protein, Blood 7.7 g/dL (6.4-8.2)
[2023-07-16 07:45] LABS: Source, Urine Clean Catch
[2023-07-16 07:50] LABS: Appearance, Urine Clear (Clear); Bilirubin, Urine Neg (Neg); Blood, Urine 1+ (Neg); Color, Urine Yellow (P-Yellow); Glucose Qualitative, Urine Neg (Neg); Ketones, Urine Neg (Neg); Leukocyte Esterase, Urine Neg (Neg); Nitrite, Urine Neg (Neg); Protein, Urine Neg (Neg); Urobilinogen, Urine NORM (Normal)
[2023-07-16 07:58] LABS: Bacteria Rare /hpf; Mucus Light (0-Heavy); Squamous Epithelial Cells Mod /hpf (Few); White Blood Cells, Urine Not Seen /hpf (0-5)
[2023-07-16] MEDS ORDERED: METR500 PO (08:24)
[2023-07-16] MEDS ORDERED: CIPR500 PO (08:24)
[2023-07-16] MEDS ORDERED: PROBIOTIC1 EA13 PO (08:24)
[2023-07-16 08:45] VITALS: BP 114/51
== END 2023-07-16 09:05 | disposition home or self-care (01) ==
LOC: ER 06:31
PROVIDERS: Emergency Medicine
DX: K57.32 Diverticulitis of large intestine without perforation or abscess without bleeding (principal); K76.9 Liver disease, unspecified; K44.9 Diaphragmatic hernia without obstruction or gangrene
CPT/HCPCS: 74177; 80053; 81001; 85025; 93005; 93010; 96361; 96374; 96375; 99284-25; J2405; J3010; J7030; Q9967

== ENCOUNTER 2023-07-21 07:16 | Emergency (ER) | payer OTHER ==
[~2023-07-21] VITALS: Ht 160 cm; Wt 117.9 kg
[~2023-07-21 07:16] MED LIST changes: +CIPR500 PO; +METR500 PO; +PROBIOTIC1 EA13 PO
[2023-07-21] MEDS ORDERED: OxyCODONE 5 mg/Acetamin 325 mg TABLET PO ONE (08:55)
[2023-07-21] MEDS ORDERED: Dexamethasone Sod Phos 10 MG/ML 1ML VIAL IM ONE (08:55)
[2023-07-21] MEDS ORDERED: METPRE4DP PO (08:58)
[2023-07-21] MEDS ORDERED: OXYC5 PO (08:58)
[2023-07-21 09:10] VITALS: BP 124/70
== END 2023-07-21 09:10 | disposition home or self-care (01) ==
LOC: ER 07:16
DX: M25.512 Pain in left shoulder (principal); M54.2 Cervicalgia
CPT/HCPCS: 96372; 99283-25; A9270; J1100

== ENCOUNTER → 2023-08-10 | Outpatient (CLI) | payer OTHER ==
[~2023-08-10] MED LIST changes: +OXYC5 PO
[2023-08-10 16:57] LABS: Bacterial Vaginosis PCR Negative (NEGATIVE); Candida Group, PCR NOT DETECTED (NOT DETECT)
[2023-08-10 17:15] LABS: Candida glabrata-krusei, PCR DETECTED (NOT DETECT)
== END | disposition home or self-care (01) ==
LOC: LAB EV 13:53
PROVIDERS: Family Medicine
DX: N76.0 Acute vaginitis (principal); R31.9 Hematuria, unspecified
CPT/HCPCS: 87481; 87661; 87801

== ENCOUNTER 2023-12-24 19:18 | Emergency (ER) | payer OTHER ==
[~2023-12-24] VITALS: Ht 160 cm; Wt 105.2 kg
[2023-12-24 20:25] LABS: BASOPHILS ABSOLUTE AUTO 0.05 K/mm3 (0.00-0.23); BASOPHILS PERCENT AUTO 1 % (0-2); EOSINOPHILS PERCENT AUTO 2 % (0-6); Hemoglobin 13.6 g/dL (11.5-16.0); IMMATURE GRAN ABSOLUTE AUTO 0.02 K/mm3 (0.00-0.10); IMMATURE GRAN PERCENT AUTO 0 % (0-1); LYMPHOCYTES ABSOLUTE AUTO 1.29 K/mm3 (0.84-5.20); LYMPHOCYTES PERCENT AUTO 14 % (21-46); MONOCYTES ABSOLUTE AUTO 0.69 K/mm3 (0.16-1.47); MONOCYTES PERCENT AUTO 7 % (4-13); Mean Corpuscular HGB 29.6 pg (26.0-34.0); Mean Corpuscular Volume 87 fL (80-100); Mean Platelet Volume 9.2 fL (9.1-12.4); NEUTROPHILS ABSOLUTE AUTO 7.34 K/mm3 (1.96-9.15); NEUTROPHILS PERCENT AUTO 77 % (41-73); Platelet Count 491 K/mm3 (150-400); RDW Coefficient Variation 13.8 % (11.7-14.2); RDW Standard Deviation 44.4 fL (35.1-46.3); Red Blood Cell Count 4.59 M/mm3 (3.80-5.20); White Blood Cell Count 9.59 K/mm3 (4.00-11.30)
[2023-12-24 20:49] LABS: Albumin, Blood 3.6 g/dL (3.4-5.0); Albumin/Globulin Ratio 1.1 (0.8-1.8); Bilirubin, Total 0.5 mg/dL (0.1-1.0); Bun/Creatinine Ratio 16.8 (12.0-20.0); Calcium, Blood 8.8 mg/dL (8.5-10.1); Creatinine, Blood 0.78 mg/dL (0.40-1.00); Globulin, Blood 3.4 g/dL (2.2-4.0); Potassium, Blood 3.8 mmol/L (3.5-5.5)
[2023-12-24] MEDS ORDERED: NS 1,000 ML IV SCH (23:00)
[2023-12-24] MEDS ORDERED: Ondansetron HCl 2 MG / ML 2ML Vial IV ONE (23:00)
[2023-12-24 23:24] LABS: Magnesium, Blood 1.7 mg/dL (1.6-2.4)
[2023-12-24] MEDS ORDERED: PROZAC2010 PO (23:26)
[2023-12-24] MEDS ORDERED: [UNRECOGNIZED DRUG - CODE] PO (23:26)
[2023-12-24] MEDS ORDERED: PANTOPRAZOLE SO40 M2 PO (23:26)
[2023-12-24] MEDS ORDERED: METTREX2.5 PO (23:28)
[2023-12-25] VITALS: BP 102/52
== END 2023-12-25 00:29 | disposition home or self-care (01) ==
LOC: ER 19:18
PROVIDERS: Physician Assistant
DX: R55 Syncope and collapse (principal); R00.1 Bradycardia, unspecified; Z88.5 Allergy status to narcotic agent; Z91.018 Allergy to other foods; Z88.8 Allergy status to other drugs, medicaments and biological substances; Z79.899 Other long term (current) drug therapy; Z79.84 Long term (current) use of oral hypoglycemic drugs; K21.9 Gastro-esophageal reflux disease without esophagitis
CPT/HCPCS: 80053; 83735; 83880; 84443; 84484; 85025; J2405; J7030

== ENCOUNTER 2024-02-01 19:28 | Emergency (ER) | payer OTHER ==
[~2024-02-01] VITALS: Ht 160 cm; Wt 102.1 kg
[~2024-02-01 19:28] MED LIST changes: +METTREX2.5 PO; +PANTOPRAZOLE SO40 M2 PO; +PROZAC2010 PO; +[UNRECOGNIZED DRUG - CODE] PO
[2024-02-01 19:48] VITALS: BP 111/70
[2024-02-01] MEDS ORDERED: Ketorolac Tromethamine 30mg Vial IM ONE (22:30)
[2024-02-01] MEDS ORDERED: Acetaminophen 500 MG Tab PO ONE (22:45)
== END 2024-02-01 22:47 | disposition home or self-care (01) ==
LOC: ER 19:28
DX: S62.326A Displaced fracture of shaft of fifth metacarpal bone, right hand, initial encounter for closed fracture (principal); K21.9 Gastro-esophageal reflux disease without esophagitis; J45.909 Unspecified asthma, uncomplicated; W51.XXXA Accidental striking against or bumped into by another person, initial encounter; Z91.018 Allergy to other foods; Z88.5 Allergy status to narcotic agent; Z91.09 Other allergy status, other than to drugs and biological substances; Z88.2 Allergy status to sulfonamides; Z79.899 Other long term (current) drug therapy
CPT/HCPCS: 29125; 73130; 99283-25; A9270; J1885

== ENCOUNTER 2024-06-12 19:39 | Emergency (ER) | payer OTHER ==
[~2024-06-12] VITALS: Ht 160 cm; Wt 86.2 kg
[2024-06-12 19:44] VITALS: BP 152/71
[2024-06-12 20:18] LABS: BASOPHILS ABSOLUTE AUTO 0.06 K/mm3 (0.00-0.23); BASOPHILS PERCENT AUTO 1 % (0-2); EOSINOPHILS ABSOLUTE AUTO 0.24 K/mm3 (0.00-0.68); EOSINOPHILS PERCENT AUTO 3 % (0-6); Hematocrit 39.9 % (33.0-51.0); Hemoglobin 13.5 g/dL (11.5-16.0); IMMATURE GRAN ABSOLUTE AUTO 0.02 K/mm3 (0.00-0.10); IMMATURE GRAN PERCENT AUTO 0 % (0-1); LYMPHOCYTES PERCENT AUTO 26 % (21-46); MONOCYTES ABSOLUTE AUTO 0.76 K/mm3 (0.16-1.47); MONOCYTES PERCENT AUTO 9 % (4-13); Mean Corpuscular HGB 29.6 pg (26.0-34.0); Mean Corpuscular HGB Conc 33.8 g/dL (31.5-36.5); Mean Corpuscular Volume 88 fL (80-100); Mean Platelet Volume 9.3 fL (9.1-12.4); NEUTROPHILS ABSOLUTE AUTO 5.12 K/mm3 (1.96-9.15); NEUTROPHILS PERCENT AUTO 61 % (41-73); Platelet Count 460 K/mm3 (150-400); RDW Coefficient Variation 13.2 % (11.7-14.2); RDW Standard Deviation 42.5 fL (35.1-46.3); Red Blood Cell Count 4.56 M/mm3 (3.80-5.20)
[2024-06-12 20:37] LABS: Albumin, Blood 3.8 g/dL (3.4-5.0); Bilirubin, Total 0.4 mg/dL (0.1-1.0); Bun/Creatinine Ratio 15.9 (12.0-20.0); Calcium, Blood 9.1 mg/dL (8.5-10.1); Creatinine, Blood 0.76 mg/dL (0.40-1.00); Globulin, Blood 3.7 g/dL (2.2-4.0); Potassium, Blood 3.4 mmol/L (3.5-5.5); Total Protein, Blood 7.5 g/dL (6.4-8.2)
== END 2024-06-12 23:10 | disposition left against medical advice (07) ==
LOC: ER 19:39
PROVIDERS: Student in an Organized Health Care Education/Training Program
DX: R42 Dizziness and giddiness (principal); R55 Syncope and collapse; R07.9 Chest pain, unspecified; R11.0 Nausea; Z53.21 Procedure and treatment not carried out due to patient leaving prior to being seen by health care provider
CPT/HCPCS: 80053; 85025